=== PATIENT | male | born 1965 | race African-American/Black ===

== ENCOUNTER 2019-03-12 15:53 | Emergency (ER) | payer MEDICARE, OTHER ==
[~2019-03-12] VITALS: Ht 188 cm; Wt 72.7 kg
[2019-03-12 15:56] VITALS: BP 134/70; PULSE 92; RESP 20; Ht 188 cm; Wt 72.7 kg
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
== END 2019-03-12 19:03 | disposition home or self-care (01) ==
LOC: E/R 15:53
DX: L89.319 Pressure ulcer of right buttock, unspecified stage (principal); F17.210 Nicotine dependence, cigarettes, uncomplicated; R40.2142 Coma scale, eyes open, spontaneous, at arrival to emergency department; R40.2362 Coma scale, best motor response, obeys commands, at arrival to emergency department; R40.2252 Coma scale, best verbal response, oriented, at arrival to emergency department; Z48.00 Encounter for change or removal of nonsurgical wound dressing
CPT/HCPCS: 99281

== ENCOUNTER 2019-03-13 10:58 | Emergency (ER) | payer MEDICARE, OTHER ==
[~2019-03-13] VITALS: Ht 188 cm; Wt 72.7 kg
[2019-03-13 11:03] VITALS: BP 146/89; PULSE 100; RESP 18; Ht 188 cm; Wt 72.7 kg
[2019-03-13] MEDS ORDERED: ONDANSETRON (ODT) 4 MG TAB ODT STA (11:30)
[2019-03-13] MEDS ORDERED: LIDOCAINE 1%/EPI 30 ML INJ INJ STA (11:30)
[2019-03-13] MEDS ORDERED: HYDROCODONE/APAP (5/325) TAB PO ONE (11:30)
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
== END 2019-03-13 13:21 | disposition home or self-care (01) ==
LOC: FTE 10:58
DX: Z48.01 Encounter for change or removal of surgical wound dressing (principal)
CPT/HCPCS: 99281

== ENCOUNTER 2019-03-16 08:51 | Emergency (ER) | payer MEDICARE, OTHER ==
[~2019-03-16] VITALS: Ht 188 cm; Wt 72.7 kg
[2019-03-16 08:58] VITALS: BP 121/64; PULSE 80; RESP 17; Ht 188 cm; Wt 72.7 kg
--- NOTE | 2019-03-16 10:21 | ERD ---
ER Documentation Chief Complaint Chief Complaint PT HERE FOR WOUND CHECK, PT WITH WOUND VAC HPI 53-year-old male who [place] and is here for a dressing change on his wound VAC. This is been chronic for several years. He has his own supplies. No other complaints. ROS All systems reviewed and are negative except as per history of present illness. Allergies Allergies: Coded Allergies: Sulfa (Sulfonamide Antibiotics) (Verified Allergy, Unknown, 03/12/19) PMhx/Soc History of Surgery: Yes (spine, abdomen, liver, pressure ulcer) Anesthesia Reaction: No Hx Neurological Disorder: No Hx Respiratory Disorders: No Hx Cardiac Disorders: No Hx Psychiatric Problems: No Hx Miscellaneous Medical Probl: Yes (paraplegic) Hx Alcohol Use: Yes (occassionally) Hx Substance Use: Yes (marijuana) Hx Tobacco Use: No FmHx Family History: No diabetes Physical Exam Vitals Vital Signs Date Temp Pulse Resp B/P (MAP) Pulse Ox O2 O2 Flow FiO2 Time Delivery Rate 03/16/19 97.8 80 17 121/64 100 08:58 (83) Physical Exam Const: No acute distress Head: Atraumatic Eyes: Normal Conjunctiva ENT: Normal External Ears, Nose and Mouth. Neck: Full range of motion. No meningismus. Resp: Clear to auscultation bilaterally Cardio: Regular rate and rhythm, no murmurs Abd: Soft, non tender, non distended. Normal bowel sounds Procedures/MDM Patient here for wound dressing change. Dressing changed. Patient counseled regarding my diagnostic impression and care plan. Prior to discharge all questions answered. Pt agrees with treatment plan and understands strict return precautions. Pt is instructed to follow up with primary care provider within 24- 48 hours. Precautionary instructions provided including instructions to return to the ER if not improving or for any worsening or changing symptoms or con cerns. Departure Diagnosis: Primary Impression: Encounter for wound care Condition: Stable Patient Instructions: Wound Care Additional Instructions: Call your primary care doctor TOMORROW for an appointment during the next 1-2 days.See the doctor sooner or return here if your condition worsens before your appointment time. SANDRA PUCKETT PA-C Mar 16, 2019 10:21
== END 2019-03-16 10:54 | disposition home or self-care (01) ==
LOC: FTE 08:51
DX: Z48.01 Encounter for change or removal of surgical wound dressing (principal)
CPT/HCPCS: 99281

== ENCOUNTER 2019-03-22 16:56 | Inpatient (IN) | payer OTHER, MEDICAID ==
[~2019-03-22] VITALS: Ht 188 cm; Wt 72.7 kg
[2019-03-22] MEDS ORDERED: SODIUM CHLORIDE 0.9% 1L BAG IV* STA (18:08)
[2019-03-22] MEDS ORDERED: VANCOMYCIN 1 GM (PMX) 250 ML IVPB STA (18:08)
[2019-03-22] MEDS ORDERED: PIPER-TAZO 3.375 GM IV (PMX) 100 ML IVPB STA (18:08)
[2019-03-22] MEDS ORDERED: ACETAMINOPHEN 325 MG TAB PO ONE (18:30)
[2019-03-22] MEDS ORDERED: ONDANSETRON 4 MG INJ IV PRN (19:00)
[2019-03-22] MEDS ORDERED: ACETAMINOPHEN 325 MG TAB PO PRN ×2 (19:00→20:30)
[2019-03-22] MEDS ORDERED: HYDROCODONE/APAP (5/325) TAB PO PRN (20:30)
[2019-03-22] MEDS ORDERED: VANCOMYCIN IV PER PHARMACY XX SCH (20:30)
[2019-03-22] MEDS ORDERED: LIDOCAINE/MYLANTA 40 ML BTL PO ONE (21:30)
[2019-03-22] MEDS ORDERED: PANTOPRAZOLE 40 MG INJ IV ONE (21:30)
[2019-03-22 23:30] VITALS: BP 106/67; PULSE 84; RESP 18
[2019-03-23 00:50] VITALS: Ht 188 cm; Wt 72.7 kg
[2019-03-23 02:00] VITALS: BP 96/48; PULSE 80; RESP 19
[2019-03-23] MEDS: PIPER-TAZO 3.375 GM IV (PMX) 100 ML IVPB SCH ×4 (02:08→17:42)
[2019-03-23] MEDS: DIPHENHYDRAMINE 50 MG INJ IV PRN (02:08)
[2019-03-23 08:00] VITALS: BP 96/53; PULSE 69; RESP 17
[2019-03-23] MEDS: ENOXAPARIN 40 MG/0.4 ML SYG SC SCH (09:08)
[2019-03-23] MEDS: VANCOMYCIN 1 GM 250 ML IVPB SCH (13:15)
[2019-03-23 14:00] VITALS: BP 98/65; PULSE 64; RESP 19
[2019-03-23] MEDS: MULTIVITAMINS/MINERALS TAB PO SCH (16:54)
[2019-03-23] MEDS: ZINC SULFATE 220 MG CAP PO SCH (16:54)
[2019-03-23 20:20] VITALS: BP 90/52; PULSE 65; RESP 18
[2019-03-23] MEDS: ASCORBIC ACID 500 MG TAB PO SCH (20:27)
[2019-03-24] MEDS: PIPER-TAZO 3.375 GM IV (PMX) 100 ML IVPB SCH ×5 (00:05→23:49)
[2019-03-24] MEDS: DIPHENHYDRAMINE 50 MG INJ IV PRN (00:11)
[2019-03-24] MEDS: VANCOMYCIN 1 GM 250 ML IVPB SCH ×2 (01:39→13:21)
[2019-03-24 02:10] VITALS: BP 97/55; PULSE 69; RESP 18
[2019-03-24 08:00] VITALS: BP 117/52; PULSE 86; RESP 20
[2019-03-24] MEDS: ASCORBIC ACID 500 MG TAB PO SCH ×2 (09:54→21:11)
[2019-03-24] MEDS: MULTIVITAMINS/MINERALS TAB PO SCH (09:54)
[2019-03-24] MEDS: ZINC SULFATE 220 MG CAP PO SCH (09:54)
[2019-03-24] MEDS: ENOXAPARIN 40 MG/0.4 ML SYG SC SCH (09:55)
[2019-03-24 14:00] VITALS: BP 113/64; PULSE 84; RESP 20
[2019-03-24 19:53] VITALS: BP 107/55; PULSE 71; RESP 20
[2019-03-25] MEDS: VANCOMYCIN 1 GM 250 ML IVPB SCH ×2 (01:03→13:58)
[2019-03-25] MEDS: DIPHENHYDRAMINE 50 MG INJ IV PRN (01:27)
[2019-03-25 02:20] VITALS: BP 116/60; PULSE 76; RESP 18
[2019-03-25] MEDS: PIPER-TAZO 3.375 GM IV (PMX) 100 ML IVPB SCH ×3 (06:00→18:01)
[2019-03-25 08:00] VITALS: BP 119/62; PULSE 68; RESP 18
[2019-03-25] MEDS: MULTIVITAMINS/MINERALS TAB PO SCH (10:09)
[2019-03-25] MEDS: ASCORBIC ACID 500 MG TAB PO SCH ×2 (10:09→21:22)
[2019-03-25] MEDS: ZINC SULFATE 220 MG CAP PO SCH (10:10)
[2019-03-25] MEDS: ENOXAPARIN 40 MG/0.4 ML SYG SC SCH (10:10)
[2019-03-25 14:00] VITALS: BP 130/75; PULSE 60; RESP 18
[2019-03-25 19:58] VITALS: BP 114/84; PULSE 72; RESP 16
[2019-03-25] MEDS: MEROPENEM 1 GM/50ML(PMX) 50 ML IVPB SCH (21:22)
[2019-03-25] MEDS ORDERED: ZOLPIDEM 5 MG TAB PO PRN (22:30)
[2019-03-26] MEDS: VANCOMYCIN 1 GM 250 ML IVPB SCH ×2 (01:47→13:26)
[2019-03-26] MEDS: DIPHENHYDRAMINE 50 MG INJ IV PRN (01:48)
[2019-03-26 02:15] VITALS: BP 102/60; PULSE 71; RESP 16
[2019-03-26 08:00] VITALS: BP 111/54; PULSE 80; RESP 19
[2019-03-26] MEDS: MULTIVITAMINS/MINERALS TAB PO SCH (08:33)
[2019-03-26] MEDS: ZINC SULFATE 220 MG CAP PO SCH (08:33)
[2019-03-26] MEDS: MEROPENEM 1 GM/50ML(PMX) 50 ML IVPB SCH ×2 (08:33→22:01)
[2019-03-26] MEDS: ASCORBIC ACID 500 MG TAB PO SCH ×2 (08:33→22:01)
[2019-03-26] MEDS: ENOXAPARIN 40 MG/0.4 ML SYG SC SCH (08:36)
[2019-03-26 13:34] VITALS: BP 111/70; PULSE 83; RESP 17
[2019-03-26] MEDS ORDERED: CYCLOBENZAPRINE 10 MG TAB PO SCH ×2 (16:30→21:00)
[2019-03-26] MEDS ORDERED: MAGNESIUM HYDROXIDE 30ML CUP PO PRN (16:30)
[2019-03-26] MEDS: FAMOTIDINE 20 MG TAB PO SCH (16:35)
[2019-03-26 20:00] VITALS: BP 119/72; PULSE 82; RESP 18
[2019-03-26] MEDS ORDERED: CYCLOBENZAPRINE 10 MG TAB PO PRN (21:00)
[2019-03-26] MEDS: traZODone 50 MG TAB PO PRN (22:01)
[2019-03-27 02:00] VITALS: BP 118/83; PULSE 82; RESP 17
[2019-03-27] MEDS: VANCOMYCIN 1 GM 250 ML IVPB SCH ×2 (02:05→12:33)
[2019-03-27] MEDS: DIPHENHYDRAMINE 50 MG INJ IV PRN ×2 (03:44→21:50)
[2019-03-27 08:33] VITALS: BP 108/75; PULSE 74; RESP 18
[2019-03-27] MEDS: FAMOTIDINE 20 MG TAB PO SCH ×2 (09:00→23:43)
[2019-03-27] MEDS: ZINC SULFATE 220 MG CAP PO SCH (09:07)
[2019-03-27] MEDS: MULTIVITAMINS/MINERALS TAB PO SCH (09:07)
[2019-03-27] MEDS: ASCORBIC ACID 500 MG TAB PO SCH ×2 (09:07→20:56)
[2019-03-27] MEDS: MEROPENEM 1 GM/50ML(PMX) 50 ML IVPB SCH ×2 (09:08→20:56)
[2019-03-27] MEDS: ENOXAPARIN 40 MG/0.4 ML SYG SC SCH (09:09)
[2019-03-27 14:34] VITALS: BP 112/70; PULSE 77; RESP 18
[2019-03-27 20:28] VITALS: BP 114/62; PULSE 86; RESP 20
[2019-03-27] MEDS: traZODone 50 MG TAB PO PRN (21:00)
[2019-03-27] MEDS: morphine 2 MG INJ IV PRN (23:48)
[2019-03-28] MEDS: VANCOMYCIN 1 GM 250 ML IVPB SCH ×2 (00:59→12:27)
[2019-03-28 01:42] VITALS: BP 119/75; PULSE 91; RESP 18
[2019-03-28 08:00] VITALS: BP 102/67; PULSE 92; RESP 16
[2019-03-28] MEDS: MEROPENEM 1 GM/50ML(PMX) 50 ML IVPB SCH ×2 (09:15→21:43)
[2019-03-28] MEDS: MULTIVITAMINS/MINERALS TAB PO SCH (09:15)
[2019-03-28] MEDS: ASCORBIC ACID 500 MG TAB PO SCH ×2 (09:15→21:51)
[2019-03-28] MEDS: ZINC SULFATE 220 MG CAP PO SCH (09:15)
[2019-03-28] MEDS: ENOXAPARIN 40 MG/0.4 ML SYG SC SCH (09:19)
[2019-03-28 14:00] VITALS: BP 99/56; PULSE 87; RESP 16
[2019-03-28 19:40] VITALS: BP 108/70; PULSE 70; RESP 18
[2019-03-28] MEDS: DIPHENHYDRAMINE 50 MG INJ IV PRN (19:42)
[2019-03-28] MEDS: morphine 2 MG INJ IV PRN (22:09)
[2019-03-28] MEDS: traZODone 50 MG TAB PO PRN (22:17)
[2019-03-29] MEDS: VANCOMYCIN 1 GM 250 ML IVPB SCH ×2 (01:28→14:34)
[2019-03-29 02:37] VITALS: BP 112/69; PULSE 83; RESP 18
[2019-03-29 08:00] VITALS: BP 117/82; PULSE 86; RESP 16
[2019-03-29] MEDS: FAMOTIDINE 20 MG TAB PO SCH (09:05)
[2019-03-29] MEDS: MULTIVITAMINS/MINERALS TAB PO SCH (09:05)
[2019-03-29] MEDS: ASCORBIC ACID 500 MG TAB PO SCH ×2 (09:05→20:59)
[2019-03-29] MEDS: ZINC SULFATE 220 MG CAP PO SCH (09:06)
[2019-03-29] MEDS: MEROPENEM 1 GM/50ML(PMX) 50 ML IVPB SCH ×2 (09:06→20:59)
[2019-03-29] MEDS: ENOXAPARIN 40 MG/0.4 ML SYG SC SCH (09:07)
[2019-03-29 14:41] VITALS: BP 117/73; PULSE 86; RESP 17
[2019-03-29 20:00] VITALS: BP 116/80; PULSE 91; RESP 18
[2019-03-29] MEDS: traZODone 50 MG TAB PO PRN (20:59)
[2019-03-29] MEDS: morphine 2 MG INJ IV PRN (21:00)
[2019-03-30] MEDS: VANCOMYCIN 1 GM 250 ML IVPB SCH ×2 (00:28→13:06)
[2019-03-30] MEDS: DIPHENHYDRAMINE 50 MG INJ IV PRN ×2 (00:32→20:28)
[2019-03-30 02:00] VITALS: BP 130/81; PULSE 93; RESP 17
[2019-03-30 07:40] VITALS: BP 112/80; PULSE 72; RESP 16
[2019-03-30] MEDS: ZINC SULFATE 220 MG CAP PO SCH (09:27)
[2019-03-30] MEDS: MULTIVITAMINS/MINERALS TAB PO SCH (09:27)
[2019-03-30] MEDS: ASCORBIC ACID 500 MG TAB PO SCH ×2 (09:27→20:27)
[2019-03-30] MEDS: MEROPENEM 1 GM/50ML(PMX) 50 ML IVPB SCH ×2 (09:27→20:29)
[2019-03-30] MEDS: FAMOTIDINE 20 MG TAB PO SCH (09:27)
[2019-03-30] MEDS: ENOXAPARIN 40 MG/0.4 ML SYG SC SCH (09:30)
[2019-03-30 14:00] VITALS: BP 122/80; PULSE 86; RESP 18
[2019-03-30 20:00] VITALS: BP 116/73; PULSE 96; RESP 18
[2019-03-30] MEDS: PANTOPRAZOLE (EC) 40 MG TAB PO SCH (20:27)
[2019-03-30] MEDS: traZODone 50 MG TAB PO PRN (20:28)
[2019-03-30] MEDS: morphine 2 MG INJ IV PRN (20:29)
[2019-03-31 02:00] VITALS: BP 112/75; PULSE 81; RESP 17
[2019-03-31] MEDS: VANCOMYCIN 1 GM 250 ML IVPB SCH ×2 (02:09→13:48)
[2019-03-31] MEDS: PANTOPRAZOLE (EC) 40 MG TAB PO SCH ×2 (06:00→17:53)
[2019-03-31 07:38] VITALS: BP 122/76; PULSE 80; RESP 16
[2019-03-31] MEDS: MEROPENEM 1 GM/50ML(PMX) 50 ML IVPB SCH ×2 (09:18→21:09)
[2019-03-31] MEDS: MULTIVITAMINS/MINERALS TAB PO SCH (09:18)
[2019-03-31] MEDS: FAMOTIDINE 20 MG TAB PO SCH (09:18)
[2019-03-31] MEDS: ZINC SULFATE 220 MG CAP PO SCH (09:19)
[2019-03-31] MEDS: ASCORBIC ACID 500 MG TAB PO SCH ×2 (09:19→21:09)
[2019-03-31] MEDS: ENOXAPARIN 40 MG/0.4 ML SYG SC SCH (09:21)
[2019-03-31 14:16] VITALS: BP 125/81; PULSE 92; RESP 16
[2019-03-31 20:42] VITALS: BP 111/66; PULSE 68; RESP 20
[2019-03-31] MEDS: DIPHENHYDRAMINE 50 MG INJ IV PRN (21:25)
[2019-03-31] MEDS: traZODone 50 MG TAB PO PRN (21:25)
[2019-03-31] MEDS: morphine 2 MG INJ IV PRN (21:26)
[2019-04-01] MEDS: VANCOMYCIN 1 GM 250 ML IVPB SCH ×2 (01:06→12:31)
[2019-04-01 01:48] VITALS: BP 109/68; PULSE 80; RESP 18
[2019-04-01] MEDS: PANTOPRAZOLE (EC) 40 MG TAB PO SCH ×2 (05:00→18:40)
[2019-04-01 08:31] VITALS: BP 112/71; PULSE 71; RESP 18
[2019-04-01] MEDS: ZINC SULFATE 220 MG CAP PO SCH (09:52)
[2019-04-01] MEDS: MEROPENEM 1 GM/50ML(PMX) 50 ML IVPB SCH ×2 (09:52→20:39)
[2019-04-01] MEDS: MULTIVITAMINS/MINERALS TAB PO SCH (09:52)
[2019-04-01] MEDS: FAMOTIDINE 20 MG TAB PO SCH (09:52)
[2019-04-01] MEDS: ASCORBIC ACID 500 MG TAB PO SCH ×2 (09:52→20:39)
[2019-04-01] MEDS: ENOXAPARIN 40 MG/0.4 ML SYG SC SCH (09:57)
[2019-04-01 15:01] VITALS: BP 116/70; PULSE 74; RESP 18
[2019-04-01 20:17] VITALS: BP 105/61; PULSE 82; RESP 20
[2019-04-01] MEDS: ZOLPIDEM 5 MG TAB PO PRN (20:39)
[2019-04-01] MEDS: DIPHENHYDRAMINE 50 MG INJ IV PRN (20:40)
[2019-04-01] MEDS: morphine 2 MG INJ IV PRN (21:47)
[2019-04-02] MEDS: VANCOMYCIN 1 GM 250 ML IVPB SCH ×2 (01:46→13:12)
[2019-04-02 02:06] VITALS: BP 111/72; PULSE 85; RESP 18
[2019-04-02] MEDS ORDERED: DIPHENHYDRAMINE 50 MG CAP PO ONE (02:30)
[2019-04-02] MEDS ORDERED: DIPHENHYDRAMINE 50 MG CAP PO PRN (03:00)
[2019-04-02] MEDS: PANTOPRAZOLE (EC) 40 MG TAB PO SCH ×2 (06:00→17:55)
[2019-04-02 08:00] VITALS: BP 119/72; PULSE 73; RESP 19
[2019-04-02] MEDS: ZINC SULFATE 220 MG CAP PO SCH (09:46)
[2019-04-02] MEDS: ASCORBIC ACID 500 MG TAB PO SCH ×2 (09:46→21:20)
[2019-04-02] MEDS: FAMOTIDINE 20 MG TAB PO SCH (09:46)
[2019-04-02] MEDS: MEROPENEM 1 GM/50ML(PMX) 50 ML IVPB SCH ×2 (09:46→21:20)
[2019-04-02] MEDS: MULTIVITAMINS/MINERALS TAB PO SCH (09:46)
[2019-04-02] MEDS: ENOXAPARIN 40 MG/0.4 ML SYG SC SCH (09:47)
[2019-04-02 13:35] VITALS: BP 122/77; PULSE 96; RESP 16
[2019-04-02 19:55] VITALS: BP 132/86; PULSE 91; RESP 18
[2019-04-02] MEDS: ZOLPIDEM 5 MG TAB PO PRN (21:20)
[2019-04-02] MEDS: DIPHENHYDRAMINE 50 MG INJ IV PRN (21:20)
[2019-04-02] MEDS: morphine 2 MG INJ IV PRN (22:35)
[2019-04-03] MEDS: VANCOMYCIN 1 GM 250 ML IVPB SCH ×2 (01:22→14:09)
[2019-04-03 02:18] VITALS: BP 119/81; PULSE 81; RESP 20
[2019-04-03] MEDS: PANTOPRAZOLE (EC) 40 MG TAB PO SCH ×2 (05:29→17:33)
[2019-04-03 07:22] VITALS: BP 125/85; PULSE 77; RESP 18
[2019-04-03] MEDS ORDERED: PENDING SANTYL ORDER FOR WOUND CARE XX PRN (08:00)
[2019-04-03] MEDS: MEROPENEM 1 GM/50ML(PMX) 50 ML IVPB SCH ×2 (08:56→20:00)
[2019-04-03] MEDS: ASCORBIC ACID 500 MG TAB PO SCH ×2 (08:57→20:00)
[2019-04-03] MEDS: FAMOTIDINE 20 MG TAB PO SCH (08:57)
[2019-04-03] MEDS: ZINC SULFATE 220 MG CAP PO SCH (08:57)
[2019-04-03] MEDS: MULTIVITAMINS/MINERALS TAB PO SCH (08:57)
[2019-04-03] MEDS: ENOXAPARIN 40 MG/0.4 ML SYG SC SCH (08:59)
[2019-04-03 14:14] VITALS: BP 130/77; PULSE 86; RESP 16
[2019-04-03] MEDS ORDERED: COLLAGENASE 5 GM (UD JAR) TOP SCH (16:30)
[2019-04-03] MEDS ORDERED: COLLAGENASE 5 GM (UD JAR) TOP PRN (16:30)
[2019-04-03 19:48] VITALS: BP 114/73; PULSE 86; RESP 18
[2019-04-03] MEDS: morphine 2 MG INJ IV PRN (19:59)
[2019-04-03] MEDS: ZOLPIDEM 5 MG TAB PO PRN (20:57)
== END 2019-04-03 21:56 | DRG 871 ==
LOC: E/R 16:56 → PP2 18:50
PROVIDERS: ADMIT Internal Medicine; ATTEND Internal Medicine
DX: A41.50 Gram-negative sepsis, unspecified (principal); L89.154 Pressure ulcer of sacral region, stage 4; N39.0 Urinary tract infection, site not specified; G82.21 Paraplegia, complete; N31.2 Flaccid neuropathic bladder, not elsewhere classified; Z93.3 Colostomy status; Z99.3 Dependence on wheelchair; D64.9 Anemia, unspecified; Z72.0 Tobacco use; B96.5 Pseudomonas (aeruginosa) (mallei) (pseudomallei) as the cause of diseases classified elsewhere; Z16.12 Extended spectrum beta lactamase (ESBL) resistance; B95.2 Enterococcus as the cause of diseases classified elsewhere; B95.4 Other streptococcus as the cause of diseases classified elsewhere; B95.61 Methicillin susceptible Staphylococcus aureus infection as the cause of diseases classified elsewhere
CPT/HCPCS: 36415; 36573; 71045; 80048; 80053; 80202; 81001; 82565; 83605; 84484; 84520; 85025; 85610; 85730; 87045; 87081; 87086; 93005; 96374; A4310; C9113; J1200; J1650; J2185; J2270; J2543; J3370; J7030